=== PATIENT | female | born 1990 | race African-American/Black ===

== ENCOUNTER 2020-09-29 13:34 | Emergency (ER) | payer BC, MEDICAID ==
[~2020-09-29] VITALS: Ht 162.6 cm; Wt 93.0 kg
[2020-09-29] MEDS ORDERED: TETRACAINE 0.5% OPHTH DROPS 4ML BOTHEYE ONE (14:30)
[2020-09-29] MEDS ORDERED: FLUORESCEIN SODIUM 1MG/STRIP BOTHEYE ONE (14:30)
[2020-09-29] MEDS ORDERED: PILOCARPINE HCL 2% OPHTH DROPS 15ML BOTHEYE SCH (14:45)
[2020-09-29] MEDS ORDERED: ACETAZOLAMIDE SODIUM 500MG/VIAL IV ONE (14:45)
[2020-09-29] MEDS ORDERED: TIMOLOL MALEATE 0.5% OPHTH DROPS 5ML EACHEYE SCH (14:45)
[2020-09-29 15:12] LABS: CHLORIDE 106 mEq/L (98-107)
[2020-09-29 15:14] LABS: BASOPHILS % 0.5 % (0.0-2.0); EOSINOPHILS % 0.5 % (0.0-5.0); HEMATOCRIT. 43.6 % (36.0-48.0); LYMPHOCYTES % 23.1 % (20.0-50.0); MEAN CORPUSCULAR HEMOGLOBIN 29.7 pg (28.0-32.0); MEAN CORPUSCULAR VOLUME 85.9 fL (81.0-99.0); MEAN PLATELET VOLUME 7.8 fl (7.4-10.4); MONOCYTES % 5.8 % (2.0-8.0); NEUTROPHILS % 70.1 % (40.0-76.0); PLATELET 274 x1000/uL (130-400); RED BLOOD CELL COUNT 5.07 mill/uL (4.2-5.4); RED CELL DISTRIBUTION WIDTH 13.2 % (11.6-14.6)
[2020-09-29] MEDS ORDERED: ACETAMINOPHEN 325MG TABLET PO ONE (17:15)
[2020-09-29] MEDS ORDERED: METOCLOPRAMIDE HCL 10MG/2ML VIAL IV ONE (17:30)
[2020-09-29] MEDS ORDERED: ACET250T26 MT (17:57)
[2020-09-29] MEDS ORDERED: LATA2.5D14 EACHEYE (17:57)
[2020-09-29] MEDS ORDERED: METO-293 MT (17:57)
[2020-09-29] MEDS ORDERED: PILO2O EACHEYE (17:57)
[2020-09-29 18:54] VITALS: BP 132/81
== END 2020-09-29 18:56 | disposition home or self-care (01) ==
LOC: ER 13:34
DX: H40.211 Acute angle-closure glaucoma, right eye (principal); R51.9 Headache, unspecified; E11.65 Type 2 diabetes mellitus with hyperglycemia; I10 Essential (primary) hypertension
CPT/HCPCS: 36415; 80053; 85025; 96374; 96375; 99284; J1120; J2765

== ENCOUNTER 2020-11-11 12:13 | Emergency (ER) | payer BC, MEDICAID ==
[~2020-11-11] VITALS: Ht 165.1 cm; Wt 87.0 kg
[~2020-11-11 12:13] MED LIST: ACET250T26 MT; LATA2.5D14 EACHEYE; METO-293 MT; PILO2O EACHEYE
[2020-11-11] MEDS ORDERED: FLUORESCEIN SODIUM 1MG/STRIP BOTHEYE ONE (14:30)
[2020-11-11] MEDS ORDERED: TETRACAINE 0.5% OPHTH DROPS 4ML BOTHEYE ONE ×2 (14:30→23:15)
[2020-11-11] MEDS ORDERED: MANNITOL 12.5G (25%) VIAL 50ML IV ONE (17:00)
[2020-11-11] MEDS ORDERED: ACETAZOLAMIDE 500MG ER CAPSULE PO ONE (17:00)
[2020-11-11] MEDS ORDERED: TIMOLOL MALEATE 0.5% OPHTH DROPS 5ML EACHEYE SCH ×2 (17:45→21:00)
[2020-11-11] MEDS ORDERED: PILOCARPINE HCL 1% OPHTH DROPS 15ML BOTHEYE SCH ×2 (17:45→22:00)
[2020-11-11] MEDS ORDERED: DORZOLAM/TIMOLOL 2.23/0.68% OPHTH DROPS 10ML BOTHEYE SCH (21:00)
[2020-11-11] MEDS ORDERED: LATANOPROST 0.005% OPHTH DROPS 2.5ML BOTHEYE SCH (21:00)
[2020-11-11] MEDS ORDERED: BRIMONIDINE 0.2% OPHTH DROPS 5ML BOTHEYE SCH (22:00)
[2020-11-12 00:51] VITALS: BP 118/74
== END 2020-11-12 01:02 | disposition short-term general hospital (02) ==
LOC: ER 12:13
DX: H40.20X0 Unspecified primary angle-closure glaucoma, stage unspecified (principal); E11.9 Type 2 diabetes mellitus without complications; F12.10 Cannabis abuse, uncomplicated; Z20.822 Contact with and (suspected) exposure to COVID-19
CPT/HCPCS: 87426; 96374; 99285; J2150